=== PATIENT | female | born 1970 | race American Indian/Alaskan Native ===

== ENCOUNTER 2017-04-11 17:03 | Emergency (ER) | payer SELFPAY ==
--- NOTE | 2017-04-11 18:25 | Emergency Department Report ---
ED Neuro Deficit HPI - General Chief Complaint: Neuro Symptoms/Deficit Stated Complaint: HYPERTENSION Time Seen by Provider: 04/11/17 18:17 Source: patient, EMS Mode of arrival: Ambulatory Limitations: No Limitations - History of Present Illness Initial Comments: upper and lower lip numbness , no ANG , no other symptoms -: Gradual Location: left face Presenting Symptoms: Absent: Weak/Paralyzed One Side, Sudden, Severe Headache, Blurred/Loss of Vision, Facial Droop/Numbness, Unable to Speak Clearly, Altered Mental Status History of same: No Place: work Severity: mild Quality: numb, tingling Improves With: none Worsens With: none On Anticoagulants: No Context: gradual onset Associated Symptoms: denies: confusion, chest pain, cough, diaphoresis, fever/ chills, headaches, loss of appetite, malise, nausea/vomiting, vertigo, seizures , shortness of breath, syncope Treatments Prior to Arrival: none - Related Data Home Medications: Previous Rx's Medication Instructions Recorded Last Taken Type Lisinopril/Hydrochlorothiazide 1 tab PO QDAY #90 tab 04/11/17 Unknown Rx [Zestoretic 20-25 mg] Allergies/Adverse Reactions: Allergies Allergy/AdvReac Type Severity Reaction Status Date / Time No Known Allergies Allergy Unverified 04/11/17 17:55 ED Review of Systems ROS: Stated complaint: HYPERTENSION Other details as noted in HPI Comment: All other systems reviewed and negative ED Past Medical Hx - Past Medical History Previous Medical History?: No - Surgical History Past Surgical History?: Yes Additional Surgical History: hysterectomy 2009 - Social History Smoking Status: Never Smoker Substance Use Type: None - Medications Home Medications: Home Medications Medication Instructions Recorded Confirmed Last Taken Type Lisinopril/Hydrochlorothiazide 1 tab PO QDAY #90 tab 04/11/17 Unknown Rx [Zestoretic 20-25 mg] ED Neuro Physical Exam - General Limitations: No Limitations General appearance: alert, in no apparent distress Suspected Stroke: No - Head Head exam: Present: atraumatic, normocephalic - Eye Eye exam: Present: normal appearance, PERRL, EOMI Pupils: Present: normal accommodation - ENT ENT exam: Present: mucous membranes moist - Neck Neck exam: Present: normal inspection - Respiratory Respiratory exam: Present: normal lung sounds bilaterally. Absent: respiratory distress - Cardiovascular Cardiovascular Exam: Present: regular rate, normal rhythm. Absent: systolic murmur, diastolic murmur, rubs, gallop - GI/Abdominal GI/Abdominal exam: Present: soft, normal bowel sounds - Extremities Exam Extremities exam: Present: normal inspection - Back Exam Back exam: Present: normal inspection. Absent: full ROM, tenderness - Neurological Exam Neurological exam: Present: alert, oriented X3 - NIHSS Assessment Interval: Baseline 1a. Level of Consciousness: alert 1b. LOC Questions: answers correctly 1c. LOC Commands: performs tasks correctly 2. Best Gaze: normal 3. Visual: no visual loss 4. Facial Palsy: normal symmetrical movement 5b. Motor Arm Right: no drift 5a. Motor Arm Left: no drift 6a. Motor Leg Left: no drift 6b. Motor Leg Right: no drift 7. Limb Ataxia: absent 8. Sensory: normal 9. Best Language: no aphasia 10. Dysarthria: normal 11. Extinction/Inattention: no abnormality Total Score: 0 Stroke Severity: No Stroke Symptoms - Psychiatric Psychiatric exam: Present: normal affect, normal mood - Skin Skin exam: Present: warm, dry, intact, normal color. Absent: rash ED Course Vital Signs 04/11/17 04/11/17 04/11/17 17:55 18:10 19:00 Temperature 98.6 F Pulse Rate 74 80 Respiratory 16 16 Rate Blood Pressure 223/116 223/126 O2 Sat by Pulse 100 100 Oximetry - Lab Data Result diagrams: 04/11/17 18:15 04/11/17 18:15 Lab Results 04/11/17 04/11/17 04/11/17 Range/Units 17:54 18:15 18:15 WBC 5.2 (4.5-11.0) K/mm3 RBC 4.83 (3.65-5.03) M/mm3 Hgb 12.8 (10.1-14.3) gm/dl Hct 40.3 (30.3-42.9) % MCV 83 (79-97) fl MCH 26 L (28-32) pg MCHC 32 (30-34) % RDW 14.6 (13.2-15.2) % Plt Count 266 (140-440) K/mm3 Lymph % (Auto) 36.3 H (13.4-35.0) % [place] % (Auto) 9.0 H (0.0-7.3) % Eos % (Auto) 2.8 (0.0-4.3) % Baso % (Auto) 0.5 (0.0-1.8) % Lymph # 1.9 (1.2-5.4) K/mm3 [place] # 0.5 (0.0-0.8) K/mm3 Eos # 0.1 (0.0-0.4) K/mm3 Baso # 0.0 (0.0-0.1) K/mm3 Seg Neutrophils % 51.4 (40.0-70.0) % Seg Neutrophils # 2.7 (1.8-7.7) K/mm3 PT 14.1 (12.2-14.9) Sec. INR 1.10 (0.87-1.13) APTT 34.5 (24.2-36.6) Sec. Thrombin Time (15.1-19.6) Sec. Sodium (137-145) mmol/L Potassium (3.6-5.0) mmol/L Chloride (98-107) mmol/L Carbon Dioxide (22-30) mmol/L Anion Gap mmol/L BUN (7-17) mg/dL Creatinine (0.7-1.2) mg/dL Estimated GFR ml/min BUN/Creatinine Ratio % Glucose (65-100) mg/dL POC Glucose 90 (70-105) Calcium (8.4-10.2) mg/dL Troponin T (0.00-0.029) ng/mL 04/11/17 04/11/17 Range/Units 18:15 18:15 WBC (4.5-11.0) K/mm3 RBC (3.65-5.03) M/mm3 Hgb (10.1-14.3) gm/dl Hct (30.3-42.9) % MCV (79-97) fl MCH (28-32) pg MCHC (30-34) % RDW (13.2-15.2) % Plt Count (140-440) K/mm3 Lymph % (Auto) (13.4-35.0) % [place] % (Auto) (0.0-7.3) % Eos % (Auto) (0.0-4.3) % Baso % (Auto) (0.0-1.8) % Lymph # (1.2-5.4) K/mm3 [place] # (0.0-0.8) K/mm3 Eos # (0.0-0.4) K/mm3 Baso # (0.0-0.1) K/mm3 Seg Neutrophils % (40.0-70.0) % Seg Neutrophils # (1.8-7.7) K/mm3 PT (12.2-14.9) Sec. INR (0.87-1.13) APTT (24.2-36.6) Sec. Thrombin Time 16.1 (15.1-19.6) Sec. Sodium 140 (137-145) mmol/L Potassium 3.5 L (3.6-5.0) mmol/L Chloride 97.2 L (98-107) mmol/L Carbon Dioxide 28 (22-30) mmol/L Anion Gap 18 mmol/L BUN 12 (7-17) mg/dL Creatinine 0.8 (0.7-1.2) mg/dL Estimated GFR > 60 ml/min BUN/Creatinine Ratio 15.00 % Glucose 90 (65-100) mg/dL POC Glucose (70-105) Calcium 9.3 (8.4-10.2) mg/dL Troponin T < 0.010 (0.00-0.029) ng/mL - Radiology Data Radiology results: report reviewed, image reviewed - Medical Decision Making patuient doing well , BP imporved here in the er, although still high and will give some hydralazine before she goes home , labs negative , but some white matter changes on head ct , i tried getting MRI but she needs to go home to her daughter so will get it as outpatient or back here to the ER. Critical care attestation.: If time is entered above; I have spent that time in minutes in the direct care of this critically ill patient, excluding procedure time. ED Disposition Clinical Impression: Hypertension Disposition: DC-01 TO HOME OR SELFCARE Is pt being admited?: No Does the pt Need Aspirin: No Condition: Good Instructions: Hypertension (ED) Prescriptions: Lisinopril/Hydrochlorothiazide [Zestoretic 20-25 mg] 1 tab PO QDAY #90 tab Referrals: PRIMARY CARE, [Primary Care Provider] - 3-5 Days VINNY MONTERO MD [Staff Physician] - 3-5 Days Time of Disposition: 20:33
[2017-04-11] MEDS ORDERED: NORMODYNE IV ONE (18:27)
[2017-04-11 18:41] LABS: Basophils % (Auto) 0.5 % (0.0-1.8); Eosinophils % (Auto) 2.8 % (0.0-4.3); Hematocrit 40.3 % (30.3-42.9); Hemoglobin 12.8 gm/dl (10.1-14.3); Mean Corpuscular HGB Conc 32 % (30-34); Mean Corpuscular Hemoglobin 26 pg (28-32); Mean Corpuscular Volume 83 fl (79-97); Platelet Count 266 K/mm3 (140-440); Red Blood Count 4.83 M/mm3 (3.65-5.03); Red Cell Distribution Width 14.6 % (13.2-15.2); White Blood Count 5.2 K/mm3 (4.5-11.0)
--- NOTE | 2017-04-11 18:44 | Cat Scan Report ---
FINAL REPORT EXAM: CT HEAD/BRAIN WO CON HISTORY: neuro deficits \T\lt; 6hrs or sx present upon awakening TECHNIQUE: CT head without contrast PRIORS: None. FINDINGS: There are patchy hypodensities within the centrum semiovale bilaterally. No acute intra or extra-axial hemorrhage is identified. Ventricles and sulci are within normal limits. No additional focal parenchymal abnormality seen. Interiano-white matter differentiation appears intact. Bony calvarium is intact. Visualized portions of paranasal sinuses and mastoids are unremarkable. IMPRESSION: Supratentorial white matter hypodensities in the centrum semi ovale. These are nonspecific and could be due to a number of etiologies. Acute ischemic change cannot be excluded. Differential consideration includes chronic ischemic change, MS, vasculitis or other etiologies. MRI is recommended for further evaluation given presence of acute symptoms.
[2017-04-11 18:50] LABS: INR 1.1 (0.87-1.13)
[2017-04-11 18:51] LABS: Partial Thromboplastin Time 34.5 Sec. (24.2-36.6)
[2017-04-11 18:52] LABS: Anion Gap 18 mmol/L; Blood Urea Nitrogen 12 mg/dL (7-17); Calcium 9.3 mg/dL (8.4-10.2); Carbon Dioxide 28 mmol/L (22-30); Chloride 97.2 mmol/L (98-107); Glucose 90 mg/dL (65-100); Potassium 3.5 mmol/L (3.6-5.0); Sodium 140 mmol/L (137-145)
--- NOTE | 2017-04-11 19:09 | Cat Scan Report ---
FINAL REPORT EXAM: CT CERVICAL SPINE WO CON HISTORY: left side of neck TECHNIQUE: CT cervical spine with reconstructions PRIORS: None. FINDINGS: Vertebral bodies demonstrate normal height and alignment. There is disc space narrowing with small marginal anterior and posterior osteophytes C5-C6 the facet joints demonstrate normal alignment. The spinous processes are intact. Craniocervical junction is unremarkable. C1 and C2 are intact. IMPRESSION: Degenerative disc disease at C5-C6 No acute abnormality seen.
[2017-04-11 19:17] VITALS: BP 223/126
[2017-04-11] MEDS ORDERED: APRESOLINE IV ONE (20:34)
== END 2017-04-11 22:00 | disposition home or self-care (01) ==
LOC: ED 17:03
DX: I10 Essential (primary) hypertension (principal)
CPT/HCPCS: 36415; 70450; 72125; 80048; 82962; 84484; 85025; 85610; 85670; 85730; 93005; 93010; 96374; 96375; 99285; J0360